=== PATIENT | male | born 1985 | race Caucasian/White ===

== ENCOUNTER 2016-08-20 16:39 | Emergency (ER) | payer BC ==
[2016-08-20 17:24] VITALS: BP 135/70
[2016-08-20] MEDS ORDERED: Ondansetron ODT TAB* 4 MG PO ONE ×2 (17:30→18:43)
[2016-08-20] MEDS ORDERED: Ibuprofen TAB* 400 MG PO ONE (17:30)
--- NOTE | 2016-08-20 17:36 | UC ---
HPI Febrile Illness - HPI Summary HPI Summary: began feeling bad yesterday. Today aches all over, dizzy, light-headed, "blurry vision when I sit up", nausea but no vomiting, loose stools several times this AM. Fever to 102 earlier today. Headache. Unable to take any OTC meds, thought it would make him vomit. No appetite, but sipping water today and eating Rice Krispies. Neck muscular pain. No rash. Mild dry cough. No congestion. No ST. No one else ill at home. No flu shot this year. - History of Current Complaint Chief Complaint: UCGI Time Seen by Provider: 08/20/16 17:24 Hx Obtained From: Patient Onset/Duration: Started Days Ago - 1 Timing: Constant Initial Severity: Mild Current Severity: Moderate Aggravating Factors: Nothing Alleviating Factors: Nothing Associated Signs and Symptoms: Arthralgia, Chills, Cough - dry, Diarrhea - for 2 hours this AM, multiple times, Dizziness, Fluid Intake - diminished today, Headache, Myalgia - diffuse, Nausea, Stiff Neck - "neck hurts when I move it around", Weakness - Risk Factors Serious Bacterial Infection Risk Factors: Negative - Allergy/Home Medications Allergies/Adverse Reactions: Allergies Allergy/AdvReac Type Severity Reaction Status Date / Time No Known Allergies Allergy Verified 08/20/16 17:16 PMH/Surg Hx/FS Hx/Imm Hx Previously Healthy: Yes Endocrine/Hematology History: Denies: Hx Diabetes Respiratory History: Reports: Hx Asthma - Surgical History Surgery Procedure, Year, and Place: CYST REMOVED FROM NASAL PASSAGE, UNDESENDED TESTICLE. GASTROSCOPE FOR ACID REFLUX - Immunization History Date of Influenza Vaccine: did not get one this year Infectious Disease History: No Infectious Disease History: Denies: Traveled Outside the [place] in Last 30 Days - Family History Known Family History: Negative: Blood Disorder - Social History Occupation: Employed Full-time Lives: With Family Alcohol Use: Occasionally Substance Use Type: Reports: None Smoking Status (MU): Never Smoked Tobacco Review of Systems Constitutional: Negative Skin: Negative Eyes: Blurred Vision - comes and goes, Photophobia - makes headache worse ENT: Negative Respiratory: Negative Cardiovascular: Negative Gastrointestinal: Diarrhea, Other - nausea, "stomach cramps when I sit up" Genitourinary: Negative Motor: Weakness - generalized Neurovascular: Negative Musculoskeletal: Myalgia Neurological: Headache, Weakness Psychological: Negative All Other Systems Reviewed And Are Negative: Yes Physical Exam Triage Information Reviewed: Yes Appearance: Well-Nourished, Pain Distress - lying in darkened room with eyes closed, speaking in a whisper Vital Signs: Initial Vital Signs Temp 99.6 F 08/20/16 17:16 Pulse 94 08/20/16 17:16 Resp 20 08/20/16 17:16 BP 135/70 08/20/16 17:16 Pulse Ox 100 08/20/16 17:16 Vital Signs Reviewed: Yes Eye Exam: Normal Eyes: Positive: Conjunctiva Clear, Other: - bright lights make headache worse ENT: Positive: Hearing grossly normal, Pharynx normal, TMs normal. Negative: Pharyngeal erythema, Nasal congestion, Tonsillar swelling, Tonsillar exudate, Trismus, Muffled/hoarse voice Neck exam: Normal Neck: Positive: Supple, Tenderness @ - posterior muscles; good ROM, can touch chin to chest without difficulty Respiratory Exam: Normal Respiratory: Positive: Lungs clear, Normal breath sounds, No respiratory distress, No accessory muscle use Cardiovascular Exam: Normal Cardiovascular: Positive: No Murmur, Pulses Normal Abdominal Exam: Normal Abdomen Description: Positive: Nontender, No Organomegaly Musculoskeletal Exam: Normal Neurological Exam: Normal Neurological: Positive: Alert, Muscle Tone Normal Psychological Exam: Normal Skin Exam: Normal Diagnostics - Laboratory Diagnostic Studies Completed/Ordered: flu neg Course/Dx - Febrile Illness Differential Diagnoses: Viremia - Diagnoses Clinic Provider Diagnoses: viral syndrome Discharge - Discharge Plan Condition: Stable Disposition: HOME Prescriptions: Diphenoxylate W/ Atropine [Lomotil] 1 tab PO QID PRN #8 tab MDD 4 tab PRN Reason: Diarrhea Ondansetron ODT TAB* [Zofran Odt TAB*] 4 mg PO Q6H PRN #7 tab.odt PRN Reason: Nausea Patient Education Materials: Viral Syndrome (ED) Forms: *Work Release Referrals: Amanda Escobar PA [Primary Care Provider] -
== END 2016-08-20 19:07 | disposition home or self-care (01) ==
LOC: UCCORT 16:39
DX: B34.9 Viral infection, unspecified (principal)
CPT/HCPCS: 87502; 99213; A9270-GY; G0463

== ENCOUNTER 2016-09-30 19:23 | Emergency (ER) | payer BC, OTHER ==
[2016-09-30 19:37] VITALS: BP 139/76
[2016-09-30] MEDS ORDERED: Ibuprofen TAB* 600 MG PO ONE (19:38)
[2016-09-30] MEDS ORDERED: Amoxicillin/Clavulanate TAB* 875 MG PO ONE (19:51)
--- NOTE | 2016-09-30 19:59 | UC ---
Respiratory Complaint HPI - HPI Summary HPI Summary: patient has had on and off again sinus congestion, was recently treated for hives, fever and sinus pressure. - History of Current Complaint Chief Complaint: UCGeneralIllness Stated Complaint: UPPER RESPIRATORY Time Seen by Provider: 09/30/16 19:30 Hx Obtained From: Patient Onset/Duration: Sudden Onset, Lasting Weeks Timing: Constant Severity Initially: Moderate Severity Currently: Severe Pain Intensity: 8 Pain Scale Used: 0-10 Numeric Character: Cough: Productive Aggravating Factors: Deep Breaths, Recumbent Position Associated Signs And Symptoms: Positive: Dyspnea, Fever, Wheezing - Risk Factors Pulmonary Embolism Risk Factors: Negative Cardiac Risk Factors: Negative Pseudomonas Risk Factors: Negative Tuberculosis Risk Factors: Negative - Allergies/Home Medications Allergies/Adverse Reactions: Allergies Allergy/AdvReac Type Severity Reaction Status Date / Time No Known Allergies Allergy Verified 09/30/16 19:27 Home Medications: Home Medications Albuterol 2.5MG/3ML (0.083%)* [Ventolin 2.5 MG/3 ML NEB.STELLA*] 2.5 mg INH Q6H PRN 09/30/16 [History Confirmed 09/30/16] Albuterol HFA INHALER* [Ventolin HFA Inhaler*] 1 - 2 puff INH Q6H PRN 09/30/16 [ History Confirmed 09/30/16] GuaiFENesin DM* [Robitussin DM*] 10 ml PO Q6H PRN 09/30/16 [History Confirmed ] diPHENhydraMINE PO* [Benadryl PO*] 25 mg PO Q6H PRN 09/30/16 [History Confirmed 09/30/16] PMH/Surg Hx/FS Hx/Imm Hx Previously Healthy: Yes Endocrine History Of: Denies: Diabetes Cardiovascular History Of: Denies: Cardiac Disorders Respiratory History Of: Reports: Asthma - Surgical History Surgical History: Yes Surgery Procedure, Year, and Place: CYST REMOVED FROM NASAL PASSAGE, UNDESENDED TESTICLE. GASTROSCOPE FOR ACID REFLUX - Family History Known Family History: Positive: Hypertension Negative: Blood Disorder - Social History Alcohol Use: Occasionally Substance Use Type: None Smoking Status (MU): Never Smoked Tobacco - Immunization History Most Recent Influenza Vaccination: Not the 2016/2016 Season Review of Systems Constitutional: Fever, Chills, Fatigue Skin: Negative Eyes: Negative ENT: Sore Throat, Ear Ache, Nasal Discharge Respiratory: Cough Cardiovascular: Negative Gastrointestinal: Negative Genitourinary: Negative Motor: Negative Neurovascular: Negative Musculoskeletal: Myalgia Neurological: Headache Psychological: Negative All Other Systems Reviewed And Are Negative: Yes Physical Exam Triage Information Reviewed: Yes Appearance: Well-Nourished, Ill-Appearing, Pain Distress Vital Signs: Initial Vital Signs Temp 102.4 F 09/30/16 19:31 Pulse 140 09/30/16 19:31 Resp 20 09/30/16 19:31 BP 139/76 09/30/16 19:31 Pulse Ox 100 09/30/16 19:31 Vital Signs Reviewed: Yes Eye Exam: Normal Eyes: Positive: Conjunctiva Inflamed ENT: Positive: Normal ENT inspection, Hearing grossly normal, Pharyngeal erythema, Nasal drainage, TM bulging, TM dull Dental Exam: Normal Neck exam: Normal Neck: Positive: Supple, Nontender, No Lymphadenopathy Respiratory Exam: Normal Respiratory: Positive: Chest non-tender, Normal breath sounds, No respiratory distress, Wheezing, Inspiration Cardiovascular Exam: Normal Cardiovascular: Positive: No Murmur, Pulses Normal, Tachycardia Abdominal Exam: Normal Abdomen Description: Positive: Nontender, No Organomegaly, Soft Bowel Sounds: Positive: Present Musculoskeletal Exam: Normal Musculoskeletal: Positive: Strength Intact, ROM Intact, No Edema Neurological Exam: Normal Neurological: Positive: Alert, Muscle Tone Normal Psychological Exam: Normal Skin Exam: Normal UC Diagnostic Evaluation - Laboratory O2 Sat by Pulse Oximetry: 100 Respiratory Course/Dx - Course Course Of Treatment: hx obtained, exam performed, medications prescribed and given - Differential Dx/Diagnosis Differential Diagnosis/HQI/PQRI: Asthma, Bronchitis, Influenza, Laryngitis, Sinusitis, Tuberculosis Provider Diagnoses: sinusitis. rash. wheezing Discharge - Discharge Plan Condition: Stable Disposition: HOME Prescriptions: Amoxicillin/Clavulanate TAB* [Augmentin TAB 875*] 875 mg PO BID #19 tab Patient Education Materials: Sinusitis (ED) Forms: *Work Release Additional Instructions: take the antibiotics as directed, and use the albuterol for any wheezing and SOB every 4 hours as needed. get plenty of rest and increase your fluid intake.
== END 2016-09-30 20:07 | disposition home or self-care (01) ==
LOC: UCCORT 19:23
DX: J32.9 Chronic sinusitis, unspecified (principal); R21 Rash and other nonspecific skin eruption; J45.909 Unspecified asthma, uncomplicated
CPT/HCPCS: 99212; A9270-GY; G0463

== ENCOUNTER 2019-05-31 19:19 | Emergency (ER) | payer BC, OTHER ==
[2019-05-31 19:43] VITALS: BP 142/71
--- NOTE | 2019-05-31 19:46 | UC ---
Throat Pain/Nasal Inocencio HPI - HPI Summary HPI Summary: 33-year-old male with a history of asthma who is had cold symptoms over the past 3 days. He states tonight he has more of a tight cough with occasional production of clear sputum. He denies any fever or chills. - History of Current Complaint Chief Complaint: UCGeneralIllness Stated Complaint: CONGESTION,COUGH Time Seen by Provider: 05/31/19 19:40 Hx Obtained From: Patient Onset/Duration: Gradual Onset Severity: Mild Pain Intensity: 7 Cough: Productive - Occasionally productive with clear sputum. Associated Signs & Symptoms: Positive: Wheezing - Allergies/Home Medications Allergies/Adverse Reactions: Allergies Allergy/AdvReac Type Severity Reaction Status Date / Time No Known Allergies Allergy Verified 05/31/19 19:35 Home Medications: Home Medications Dm/Acetaminophen/Doxylamine [Nighttime Cold and Flu Liquid] 1 udc PO ONCE PRN [History Confirmed 05/31/19] Levocetirizine Dihydrochloride [Xyzal Allergy 24Hr] 5 mg PO DAILY 05/31/19 [ History Confirmed 05/31/19] PMH/Surg Hx/FS Hx/Imm Hx Previously Healthy: Yes Respiratory History: Asthma Neurological History: Migraine - Surgical History Surgical History: Yes Surgery Procedure, Year, and Place: CYST REMOVED FROM NASAL PASSAGE, UNDESENDED TESTICLE. GASTROSCOPE FOR ACID REFLUX - Family History Known Family History: Positive: Hypertension Negative: Blood Disorder - Social History Alcohol Use: Weekly Substance Use Type: None Smoking Status (MU): Never Smoked Tobacco - Immunization History Most Recent Influenza Vaccination: Not the 2015/2016 Season Review of Systems All Other Systems Reviewed And Are Negative: Yes ENT: Positive: Nasal Discharge, Sinus Congestion Respiratory: Positive: Cough Is Patient Immunocompromised?: No Physical Exam Triage Information Reviewed: Yes Appearance: Well-Appearing, No Pain Distress, Well-Nourished Vital Signs: Initial Vital Signs Temp 99.5 F 05/31/19 19:40 Pulse 72 05/31/19 19:40 Resp 16 05/31/19 19:40 BP 142/71 05/31/19 19:40 Pulse Ox 100 05/31/19 19:40 Vital Signs Reviewed: Yes Eyes: Positive: Conjunctiva Clear ENT: Positive: Pharynx normal, Nasal congestion, Nasal drainage, TMs normal, Uvula midline Neck: Positive: Supple, Nontender, No Lymphadenopathy Respiratory: Positive: No respiratory distress, No accessory muscle use, Rhonchi - Very mild rhonchi in the right lower lobe posteriorly however good air movement throughout all lung riojas. Tight cough. Cardiovascular: Positive: RRR, No Murmur, Pulses Normal, Brisk Capillary Refill Musculoskeletal Exam: Normal Neurological Exam: Normal Psychological Exam: Normal Skin Exam: Normal Throat Pain/Nasal Course/Dx - Course Course Of Treatment: Chest x-ray: Negative for infiltrate as reviewed by myself and Dr. Alford. Patient is given prednisone 40 mg here and to continue a tapering prednisone over the next 11 days. He is to continue using his albuterol nebulizer or inhaler every 4 hours as needed for wheezing or tight cough. He is to follow up at the [facility] or with his primary care provider if no improvement in 4 or 5 days. - Differential Dx/Diagnosis Provider Diagnosis: Bronchitis Discharge ED - Sign-Out/Discharge Documenting (check all that apply): Patient Departure All imaging exams completed and their final reports reviewed: No - Discharge Plan Condition: Good Disposition: HOME Prescriptions: predniSONE TAB* [Deltasone 10 MG TAB*] 10 mg PO DAILY 11 Days #26 tab Patient Education Materials: Acute Bronchitis (ED) Referrals: [facility] [Outside] No Primary Care Phys,NOPCP [Primary Care Provider] - Additional Instructions: Increase fluids, continue to use your albuterol nebulizer or inhaler every 4 hours as needed for wheezing or tight cough. Take the prednisone with food starting tomorrow since you were given a dose for today. Follow up at [facility] or with your primary care provider if no improvement in 4 or 5 days. - Billing Disposition and Condition Condition: GOOD Disposition: Home
[2019-05-31] MEDS ORDERED: predniSONE TAB* 20 MG PO ONE (20:00)
--- NOTE | 2019-06-01 11:16 | UC ---
- Progress Note Progress Note: Final radiologist read her chest x-ray from May 31, 2019 comes back as no acute disease process. Provider interpretation the same date is the same therefore there is no discrepancy. Course/Dx - Diagnoses Provider Diagnoses: Bronchitis Discharge ED - Sign-Out/Discharge Documenting (check all that apply): Patient Departure All imaging exams completed and their final reports reviewed: Yes - Discharge Plan Condition: Good Disposition: HOME Prescriptions: predniSONE TAB* [Deltasone 10 MG TAB*] 10 mg PO DAILY 11 Days #26 tab Patient Education Materials: Acute Bronchitis (ED) Referrals: [facility] [Outside] No Primary Care Phys,NOPCP [Primary Care Provider] - Additional Instructions: Increase fluids, continue to use your albuterol nebulizer or inhaler every 4 hours as needed for wheezing or tight cough. Take the prednisone with food starting tomorrow since you were given a dose for today. Follow up at [facility] or with your primary care provider if no improvement in 4 or 5 days. - Billing Disposition and Condition Condition: GOOD Disposition: Home
== END 2019-05-31 20:09 | disposition home or self-care (01) ==
LOC: UCCORT 19:19
DX: J40 Bronchitis, not specified as acute or chronic (principal); J45.909 Unspecified asthma, uncomplicated; G43.909 Migraine, unspecified, not intractable, without status migrainosus
CPT/HCPCS: 71046; 99212; G0463; J7512